=== PATIENT | male | born 1945 | race Caucasian/White ===

== ENCOUNTER 2016-09-23 10:05 | Observation (INO) | payer OTHER ==
[~2016-09-23] VITALS: Ht 177.8 cm; Wt 70.0 kg
[2016-09-23 10:08] VITALS: BP 190/104; PULSE 74; RESP 18; TEMP 98; O2SAT 98
[2016-09-23] MEDS ORDERED: TOPI200T7 PO (10:25)
[2016-09-23] MEDS ORDERED: FOLI1TAB4 PO (10:25)
[2016-09-23] MEDS ORDERED: MEGE1SUS10 PO (10:25)
[2016-09-23] MEDS ORDERED: GUAI600T11 PO (10:25)
[2016-09-23] MEDS ORDERED: OMEP20TA PO (10:25)
[2016-09-23] MEDS ORDERED: ATOR40TA16 PO (10:25)
[2016-09-23] MEDS ORDERED: BUDE1SUS2 (10:25)
[2016-09-23] MEDS ORDERED: SPIRCAP INH (10:25)
[2016-09-23] MEDS ORDERED: CETI10 PO (10:25)
[2016-09-23] MEDS ORDERED: VENL75TA PO (10:25)
[2016-09-23 10:26] VITALS: BP 178/97; PULSE 74; RESP 18; O2SAT 95; O2SAT 97
[2016-09-23] MEDS ORDERED: SODIUM CHLORIDE 0.9% FLUSH 5 ML FLUSH IVF PRN ×2 (10:30→12:45)
[2016-09-23] MEDS ORDERED: RESP: ALBUTEROL 2.5 MG/IPRATROPIUM 0.5 MG NEB (SCH) INH ONE (10:30)
[2016-09-23 10:35] LABS: AUTOMATED NEUTROPHIL # 5.5 TH/MM3 (1.8-7.7); BASOPHIL % 0.3 % (0.0-2.0); EOSINOPHIL # 0.1 TH/MM3 (0-0.4); EOSINOPHIL % 1.4 % (0.0-4.0); HEMATOCRIT 41.9 % (39.0-51.0); HEMO FLAGS DIFF FINAL; LYMPH % 23.1 % (9.0-44.0); LYMPHOCYTE # 1.9 TH/MM3 (1.0-4.8); MEAN CELL VOLUME 99.8 FL (80.0-100.0); MEAN CORPUSCULAR HEMOGLOBIN 33.4 PG (27.0-34.0); MEAN CORPUSCULAR HGB CONC 33.5 % (32.0-36.0); NEUT % 66.2 % (16.0-70.0); PLATELET COUNT 167 TH/MM3 (150-450); RED BLOOD COUNT 4.19 MIL/MM3 (4.50-5.90); RED CELL DISTRIBUTION WIDTH 13.5 % (11.6-17.2); WHITE BLOOD COUNT 8.3 TH/MM3 (4.0-11.0)
[2016-09-23 10:48] LABS: BICARBONATE 23.8 MEQ/L (21.0-32.0); MAGNESIUM 1.8 MG/DL (1.5-2.5); POTASSIUM 3.2 MEQ/L (3.5-5.1)
[2016-09-23 10:52] VITALS: O2SAT 97
--- NOTE | 2016-09-23 10:58 | PD ---
HPI Chief Complaint: Respiratory Symptoms Time Seen by Provider: 10:16 Travel History International Travel<30 days: No Contact w/Intl Traveler<30days: No Traveled to known affect area: No History of Present Illness HPI Patient is a 71-year-old male with history of COPD who presents the emergency department with complaint of shortness of breath. Patient states that for the last 5 days he has had dyspnea with exertion, feels as though he is unable to catch a deep breath. Initially denied any associated chest pain but on further questioning states that he has a slight ache in the substernal region with exertion. Patient is symptom-free at this time. He has not had any cough, cold , chest congestion, lower extremity edema. He denies any history of cardiac disease. He's had previous provocative testing but is been well over a decade. Patient was seen at the [facility] today, and they sent him here for further evaluation. [facility] Past Medical History Depression: Yes COPD: Yes Hypertension: Yes Tetanus Vaccination: > 5 Years Influenza Vaccination: Yes Past Surgical History Genitourinary Surgery: Yes (PROSTATE) Tonsillectomy: Yes Other Surgery: Yes (RT LOBECTOMY (LUNG CA)) Social History Alcohol Use: No Tobacco Use: No Substance Use: No Allergies-Medications (Allergen,Severity, Reaction): Coded Allergies: No Known Allergies (Unverified , 09/23/16) Reported Meds & Prescriptions Reported Meds & Active Scripts Active Reported Atorvastatin (Atorvastatin Calcium) 40 Mg Tab 40 Mg PO HS Cetirizine (Cetirizine HCl) 10 Mg Tab 10 Mg PO DAILY Budesonide (Budesonide (Nasal)) 32 Mcg/Act Aimee Spiriva Handihaler (Tiotropium Inh) 18 Mcg Cap 18 Mcg INH DAILY 1 capsule = 18 mcg Omeprazole 20 Mg Tab 20 Mg PO DAILY Megestrol ES Liq 625 Mg/5 Ml Susp 200 Mg PO DAILY Folate (Folic Acid) 1 Mg Tab 1 Mg PO DAILY Effexor (Venlafaxine HCl) 75 Mg Tab 75 Mg PO DAILY Topiramate 200 Mg Tab 200 Mg PO BID Mucus Relief ER (Guaifenesin) 600 Mg Tab 400 Mg PO BID PRN Review of Systems Except as stated in HPI: all other systems reviewed are Neg Physical Exam Narrative GENERAL: Well-appearing male in no acute distress SKIN: Warm and dry. HEAD: Normocephalic. EYES: No scleral icterus. No injection or drainage. ENT: Mucous membranes pink and moist. NECK: Supple CARDIOVASCULAR: Regular rate and rhythm. No murmur appreciated. RESPIRATORY: No accessory muscle use. Clear to auscultation. Breath sounds equal bilaterally. GASTROINTESTINAL: Abdomen soft, non-tender, nondistended. MUSCULOSKELETAL: No obvious deformities. No edema. NEUROLOGICAL: Awake and alert. Normal speech. PSYCHIATRIC: Appropriate mood and affect; insight and judgment normal. Data Data Last Documented VS Vital Signs Date Time Temp Pulse Resp B/P Pulse Ox O2 Delivery O2 Flow Rate FiO2 09/23/16 10:52 97 21 09/23/16 10:26 74 18 178/97 09/23/16 10:08 98.0 Orders Complete Blood Count With Diff (09/23/16 10:19) Basic Metabolic Panel (Bmp) (09/23/16 10:19) B-Type Natriuretic Peptide (09/23/16 10:19) Magnesium (Mg) (09/23/16 10:19) Troponin I (09/23/16 10:19) Iv Access Insert/Monitor (09/23/16 10:19) Electrocardiogram (09/23/16 10:19) Ecg Monitoring (09/23/16 10:19) Oximetry (09/23/16 10:19) Chest, Single Ap (09/23/16 10:19) Sodium Chloride 0.9% Flush (Ns Flush) (09/23/16 10:30) Albuterol-Ipratropium Neb (Duoneb Neb) (09/23/16 10:30) Ckmb (Isoenzyme) Profile (09/23/16 10:31) Prothrombin Time / Inr (Pt) (09/23/16 10:31) Act Partial Throm Time (Ptt) (09/23/16 10:31) Aspirin (Aspirin) (09/23/16 11:00) Admit Order (Ed Use Only) (09/23/16 11:18) Labs Laboratory Tests Test 09/23/16 10:20 White Blood Count 8.3 TH/MM3 Red Blood Count 4.19 MIL/MM3 Hemoglobin 14.0 GM/DL Hematocrit 41.9 % Mean Corpuscular Volume 99.8 FL Mean Corpuscular Hemoglobin 33.4 PG Mean Corpuscular Hemoglobin 33.5 % Concent Red Cell Distribution Width 13.5 % Platelet Count 167 TH/MM3 Mean Platelet Volume 8.7 FL Neutrophils (%) (Auto) 66.2 % Lymphocytes (%) (Auto) 23.1 % Monocytes (%) (Auto) 9.0 % Eosinophils (%) (Auto) 1.4 % Basophils (%) (Auto) 0.3 % Neutrophils # (Auto) 5.5 TH/MM3 Lymphocytes # (Auto) 1.9 TH/MM3 Monocytes # (Auto) 0.7 TH/MM3 Eosinophils # (Auto) 0.1 TH/MM3 Basophils # (Auto) 0.0 TH/MM3 CBC Comment DIFF FINAL Differential Comment Sodium Level 140 MEQ/L Potassium Level 3.2 MEQ/L Chloride Level 106 MEQ/L Carbon Dioxide Level 23.8 MEQ/L Anion Gap 10 MEQ/L Blood Urea Nitrogen 25 MG/DL Creatinine 1.03 MG/DL Estimat Glomerular Filtration 71 ML/MIN Rate Random Glucose 102 MG/DL Calcium Level 8.8 MG/DL Magnesium Level 1.8 MG/DL Troponin I 0.02 NG/ML B-Type Natriuretic Peptide 33 PG/ML MDM Medical Decision Making Medical Screen Exam Complete: Yes Emergency Medical Condition: Yes Medical Record Reviewed: Yes Differential Diagnosis 71-year-old male with history of COPD here with complaint of dyspnea and chest pain with exertion for the last 5 days, currently symptom-free. Differential includes COPD exacerbation, pneumonia, bronchitis, ACS, new onset heart failure , and less likely PE or dissection. Narrative Course Patient placed on monitor, IV established and blood obtained. A twelve-lead EKG shows sinus rhythm without notable ST abnormalities, normal intervals. Patient given aspirin, DuoNeb times. Portable chest x-ray was obtained that by my read shows no acute abnormalities. CBC, BMP, magnesium, CK-MB, troponin, coags, BNP obtained and unremarkable. Patient will be admitted to chest pain center for serial enzymes and EKG and provocative testing. Diagnosis Primary Impression: Exertional chest pain Additional Impression: Exertional dyspnea Admitting Information Admitting Physician Requests: Nasima Valdivia MD Sep 23, 2016 10:58
[2016-09-23] MEDS ORDERED: ASPIRIN 325 MG TAB PO ONE (11:00)
--- NOTE | 2016-09-23 11:24 | RADRPT ---
EXAM DATE/TIME: 09/23/2016 10:32 [facility] COMPARISON: No previous studies available for comparison. INDICATIONS : Short of breath. Chest pain. MEDICAL HISTORY : Carcinoma, prostatic. Carcinoma, lung. SURGICAL HISTORY : Lobectomy. Prostatectomy. ENCOUNTER: Initial ACUITY: 1 day PAIN SCORE: 4/10 LOCATION: Left middle chest FINDINGS: Portable AP view of the chest demonstrates a normal-sized cardiac silhouette with calcification of th e aorta. There is a calcified right paratracheal lymph node. Clips overlie the right hilar and suprah ilar region. No effusion, consolidation, or pneumothorax is visualized. There is slight blunting of t he right phrenic sulcus with linear opacity at the right base. There are right rib changes suggestive of prior thoracotomy. CONCLUSION: 1. Findings indicative of prior right thoracotomy. The blunting of the right costophrenic sulcus, the refore, most likely represents pleural scar. 2. Otherwise, no acute cardiopulmonary abnormality is identified. José Antonio Back MD on September 23, 2016 at 11:21 Board Certified Radiologist. This report was verified electronically.
[2016-09-23 11:59] LABS: APTT (PATIENT) 24.2 SEC (24.3-30.1)
[2016-09-23 12:41] LABS: CREATINE KINASE 53 U/L (39-308)
[2016-09-23] MEDS ORDERED: ACETAMINOPHEN 500 MG CPLT PO PRN (12:45)
[2016-09-23] MEDS ORDERED: cloNIDine HCL 0.1 MG TAB PO PRN (12:45)
[2016-09-23] MEDS ORDERED: ALPRAZolam 0.25 MG TAB PO PRN (12:45)
[2016-09-23] MEDS ORDERED: ONDANSETRON HCL 4 MG/2 ML VIAL IV PRN (12:45)
[2016-09-23] MEDS ORDERED: ACETAMINOPHEN/HYDROcodone 325 MG/7.5 MG TAB PO PRN (12:45)
[2016-09-23] MEDS ORDERED: RESP: ALBUTEROL 2.5 MG/IPRATROPIUM 0.5 MG NEB (PRN) INH (12:45)
[2016-09-23] MEDS ORDERED: IOHEXOL 350 MG/ML 10 ML VIAL (for RAD DIAG) IV ONE (13:27)
[2016-09-23] MEDS ORDERED: POTASSIUM CHLORIDE 20 MEQ CONTROLLED RELEASE TAB PO ONE (14:00)
--- NOTE | 2016-09-23 14:04 | HHI.HP ---
HPI Primary Care Physician Ra [facility] Chief Complaint Dyspnea on exertion History of Present Illness This is a 71-year-old male that presents to ED after being evaluated at the [place] [facility] today with a complaint of dyspnea on exertion. Patient states that he had been doing fine until week ago. He states that for the last week he gets extremely short of breath even with very minimal activity. He states he can only walk a few steps for gets extremely short of breath. He initially was not thinking of having discomfort in his chest but now recalls that he gets really short of breath he'll get a discomfort in the center of his chest but that resolves when the dyspnea resolves. However the discomfort is not always there when he has shortness of breath. Denies nausea or diaphoresis. He does have history of lung cancer and had a right upper lobe lobectomy 3 years ago. He follows oncologist and states that follow-up set been good. He also has history of COPD but states he generally does not use inhalers however he did try the inhalers a few times over last week without any improvement of his symptoms. He does believe that his symptoms improved after getting the breathing treatment in the ED. He states prior to that he was unable to get in a full breath. Denies history of CAD. He states that his last stress test was okay however was 20 years ago. Denies recent illness. Denies coughing. Denies fevers or chills. Review of Systems General: Patient denies fevers, chills recent, and recent travel HEENT: Patient denies headache, sore throat, difficulty swallowing. Cardiovascular: Has the chest discomfort as mentioned above. Denies sensation of heart beating rapidly or irregularly. Denies diaphoresis No syncope. Respiratory: Complains of shortness of breath with exertion which he describes as walking deceiving minimally. He states it's hard to take in a deep breath but this does not cause pain. Denies coughing wheezing or hemoptysis. GI: Patient denies nausea, vomiting, diarrhea, abdominal pain, bloody stools. Musculoskeletal: Patient denies joint pain or edema. Denies calf pain or edema. Neurovascular: Patient denies numbness, tingling, weakness in extremities. Denies headache. Endocrine: Denies polyuria and polydipsia. Hematologic: Denies easy bruising. Skin: Denies rash or itching. Past Family Social History Allergies: Coded Allergies: No Known Allergies (Unverified , 09/23/16) Past Medical History Lung cancer with right upper lobe lobectomy 3 years ago. COPD. Hypertension, hyperlipidemia. Prostate cancer with prostatectomy. Denies diabetes and known CAD. Past Surgical History Right upper lobe lobectomy secondary to lung cancer. Left tib-fib. Prostatectomy and tonsillectomy. Reported Medications Reported Meds & Active Scripts Active Reported Atorvastatin (Atorvastatin Calcium) 40 Mg Tab 40 Mg PO HS Cetirizine (Cetirizine HCl) 10 Mg Tab 10 Mg PO DAILY Budesonide (Budesonide (Nasal)) 32 Mcg/Act Aimee Spiriva Handihaler (Tiotropium Inh) 18 Mcg Cap 18 Mcg INH DAILY 1 capsule = 18 mcg Omeprazole 20 Mg Tab 20 Mg PO DAILY Megestrol ES Liq 625 Mg/5 Ml Susp 200 Mg PO DAILY Folate (Folic Acid) 1 Mg Tab 1 Mg PO DAILY Effexor (Venlafaxine HCl) 75 Mg Tab 75 Mg PO DAILY Topiramate 200 Mg Tab 200 Mg PO BID Mucus Relief ER (Guaifenesin) 600 Mg Tab 400 Mg PO BID PRN Active Ordered Medications Current Medications Medications (Trade) Dose Ordered Sig/Mo Route Start Time Stop Time Status Last Admin (NS Flush) 2 ml UNSCH PRN IVF 09/23/16 12:45 (NS Flush) 2 ml BID IVF 09/23/16 21:00 (Tylenol) 500 mg Q4H PRN PO 09/23/16 12:45 ([place] 7.5-325 Mg) 1 tab Q4H PRN PO 09/23/16 12:45 (Zofran Inj) 4 mg Q6H PRN IV 09/23/16 12:45 (Protonix) 40 mg DAILY PO 09/23/16 13:00 (Aspirin) 325 mg DAILY PO 09/24/16 09:00 (Xanax) 0.25 mg Q8H PRN PO 09/23/16 12:45 (Lipitor) 40 mg HS PO 09/23/16 21:00 (Folate) 1 mg DAILY PO 09/24/16 09:00 (Topamax) 200 mg BID PO 09/23/16 21:00 (Effexor Xr) 75 mg DAILY PO 09/24/16 09:00 (Catapres) 0.1 mg Q4H PRN PO 09/23/16 12:45 (KCl) 20 meq NOW ONCE PO 09/23/16 14:00 09/23/16 14:01 Family History Denies family history of CAD. Social History Patient quit smoking in 2003. Prior that he smoked 1-1/2 packs of cigarettes daily for 30 years. He has had no alcohol for 16 months. Denies illicit drugs. Patient is . Physical Exam Vital Signs Vital Signs Date Time Temp Pulse Resp B/P Pulse Ox O2 Delivery O2 Flow Rate FiO2 09/23/16 10:52 97 21 09/23/16 10:26 97 09/23/16 10:26 74 18 178/97 95 09/23/16 10:08 98.0 74 18 190/104 98 Physical Exam GENERAL: This is a well-nourished, well-developed patient, in no apparent distress. Patient speaks in clear complete sentences. Patient is pleasant. HEENT: Head is atraumatic and normocephalic. Neck is supple without lymphadenopathy and trachea is midline. No JVD or carotid bruits. CARDIOVASCULAR: Regular rate and rhythm without murmurs, gallops, or rubs. RESPIRATORY: Clear to auscultation. Breath sounds equal bilaterally. No wheezes , rales, or rhonchi. Chest wall is nontender. No use of accessory muscles. I had the patient walk while hooked up to pulse oximeter and his oxygen level on room air decreased to 79% after about 10 steps. His oxygen level was 94-95% on room air while lying in the stretcher. GASTROINTESTINAL: Abdomen is nontender, nondistended. Abdomen soft. No obvious pulsatile mass or bruit. No CVA tenderness. Strong femoral pulses bilaterally. Normal bowel sounds in all quadrants. MUSCULOSKELETAL: Patient is moving upper and lower extremities freely. No calf tenderness or edema, no Homans sign. Strong pulses in upper and lower extremities. NEUROLOGICAL: Patient is alert and oriented. Cranial nerves 2-12 are grossly intact. No focal deficits and speech is clear. SKIN: No rash and turgor is normal. Laboratory Laboratory Tests Test 09/23/16 09/23/16 10:20 11:15 White Blood Count 8.3 Red Blood Count 4.19 Hemoglobin 14.0 Hematocrit 41.9 Mean Corpuscular Volume 99.8 Mean Corpuscular Hemoglobin 33.4 Mean Corpuscular Hemoglobin 33.5 Concent Red Cell Distribution Width 13.5 Platelet Count 167 Mean Platelet Volume 8.7 Neutrophils (%) (Auto) 66.2 Lymphocytes (%) (Auto) 23.1 Monocytes (%) (Auto) 9.0 Eosinophils (%) (Auto) 1.4 Basophils (%) (Auto) 0.3 Neutrophils # (Auto) 5.5 Lymphocytes # (Auto) 1.9 Monocytes # (Auto) 0.7 Eosinophils # (Auto) 0.1 Basophils # (Auto) 0.0 CBC Comment DIFF FINAL Differential Comment Sodium Level 140 Potassium Level 3.2 Chloride Level 106 Carbon Dioxide Level 23.8 Anion Gap 10 Blood Urea Nitrogen 25 Creatinine 1.03 Estimat Glomerular Filtration 71 Rate Random Glucose 102 Calcium Level 8.8 Magnesium Level 1.8 Troponin I 0.02 B-Type Natriuretic Peptide 33 Prothrombin Time 11.0 Prothromb Time International 1.0 Ratio Activated Partial 24.2 Thromboplast Time Total Creatine Kinase 53 Result Diagram: 09/23/16 1020 09/23/16 1020 Imaging Last 48 hours Impressions Chest X-Ray 09/23/16 1019 Signed Impressions: Service Date/Time: Friday, September 23, 2016 10:32 - CONCLUSION: 1. Findings indicative of prior right thoracotomy. The blunting of the right costophrenic sulcus, therefore, most likely represents pleural scar. 2. Otherwise, no acute cardiopulmonary abnormality is identified. José Antonio Back MD Course Initial EKG is sinus rhythm without significant ST segment depressions or elevations. Assessment and Plan Assessment and Plan * COPD: Patient has had COPD. He was admitted to the chest pain center to evaluate possible cardiac causes of his dyspnea on exertion. The patient desaturated on room air while walking in the [place] after about 10 steps. He was placed on oxygen. She will be evaluated by Dr. Miguel Nascimento of cardiology and the chest pain center. We will get a CTA of the chest. This is pending. Further recommendations pending the evaluation from Dr. Miguel Nascimento as well as the results of the CTA. * Chest pain: Patient will be evaluated by Dr. Miguel Nascimento and further recommendations will follow. Patient will continue to have serial cardiac enzymes and EKGs for ruling out purposes. * Hypertension: Patient states [facility] over 6 months ago after being hypotensive. Patient is stable at this time. He is agreeable to this plan. Azzarello,Rodger A. PA Sep 23, 2016 14:04
[2016-09-23] MEDS: PANTOPRAZOLE SOD 40 MG DELAYED RELEASE TAB PO SCH (14:29)
--- NOTE | 2016-09-23 14:34 | RADRPT ---
EXAM DATE/TIME: 09/23/2016 13:25 [facility] COMPARISON: CHEST SINGLE AP, September 23, 2016, 10:32. INDICATIONS : Shortness of breath; chest pain. IV CONTRAST: 50 cc Omnipaque 350 (iohexol) IV RADIATION DOSE: 20.68 CTDIvol (mGy) MEDICAL HISTORY : Hypertension. Carcinoma, lung. SURGICAL HISTORY : Lobectomy. Prostate. ENCOUNTER: Initial ACUITY: 4 - 6 days PAIN SCALE: 4/10 LOCATION: Bilateral chest TECHNIQUE: Volumetric scanning of the chest was performed using a pulmonary embolism protocol MIP images were re constructed. Using automated exposure control and adjustment of the mA and/or kV according to patien t size, radiation dose was kept as low as reasonably achievable to obtain optimal diagnostic quality images. FINDINGS: PULMONARY ARTERIES: No filling defects are seen in the pulmonary arteries through the subsegmental level. LUNGS: There is mild centrilobular emphysema. Clips are present adjacent to the right upper lobe bronchus an d there has been prior right upper lobectomy. [place] are present along the medial aspect of the righ t middle lobe. Scar is present at the right lung base. No consolidation or pneumothorax is present. PLEURAE: There is right pleural thickening. No significant pleural fluid is present. MEDIASTINUM: There is good visualization of the great vessels of the middle mediastinum. Coronary artery calcifica tion is present. No evidence of mediastinal or hilar adenopathy/mass. MUSCULOSKELETAL: There are degenerative changes of the thoracic spine and the right posterior sixth rib has been resec dhruv. MISCELLANEOUS: The visualized upper abdominal organs demonstrate no acute abnormality. There are innumerable punctat e scattered calcifications throughout the liver and spleen indicative of prior glomus infection. Ther e is a diverticulum arising from the posterior aspect of the proximal stomach measuring 5.8 cm on thi s exam. CONCLUSION: 1. No PE is identified. 2. Patient is post right thoracotomy and right upper lobectomy. There is mild centrilobular emphysema . 3. Nonacute findings include coronary artery calcification and gastric diverticulum. José Antonio Back MD on September 23, 2016 at 14:25 Board Certified Radiologist. This report was verified electronically.
--- NOTE | 2016-09-23 15:08 | EKG ---
Date Performed: 09/23/2016 Time Performed: 10:14:29 PTAGE: 71 years EKG: Sinus rhythm NORMAL ECG NO PREVIOUS TRACING DOCTOR: Miguel Nascimento Interpretating Date/Time 09/23/2016 15:06:55
[2016-09-23] MEDS ORDERED: REGADENOSON INJ 0.4 MG/5 ML SYR ONE (15:32)
[2016-09-23 17:10] VITALS: BP 156/82; PULSE 77; RESP 19; TEMP 97.8; O2SAT 95
--- NOTE | 2016-09-23 17:23 | RADRPT ---
EXAM DATE/TIME: 09/23/2016 15:29 [facility] COMPARISON: No previous studies available for comparison. INDICATIONS : Dyspnea upon exertion for 5 days with slight substernal ache in chest. Angina. DOSE: 26.1 mCi Tc99m Myoview at stress. 8.8 mCi Tc99m Myoview at rest. 0.4 mg Lexiscan STRESS SYMPTOMS: Dyspnea. EJECTION FRACTION: 62% MEDICAL HISTORY : Chronic obstructive pulmonary disease. Hypertension. SURGICAL HISTORY : Tonsillectomy. Prostatectomy. Lobectomy. ENCOUNTER: Initial ACUITY: 4 - 6 days PAIN SCALE: 2/10 LOCATION: Substernal chest TECHNIQUE: The patient underwent pharmacologic stress with infusion of prescribed dose. Continuous ECG tracing was monitored during stress. Gated SPECT imaging was performed after stress and conventional SPECT i maging was performed at rest. The examination was performed on a SPECT/CT scanner, both attenuation and non-corrected datasets were reviewed. FINDINGS: DISTRIBUTION: The maximum perfused segment at stress is in the inferior wall. PERFUSION STUDY: There is extensive activity involving the bowel which limits evaluation of the inferior wall. The rem ainder of the myocardium demonstrates no abnormality. GATED STUDY: There is intact wall motion and thickening without hypokinetic or dyskinetic segments. CONCLUSION: 1. Limited but negative evaluation of the heart. Please see above. RISK CATEGORY: Low (<1% Annual Mortality Rate) Miguel Adam MD on September 23, 2016 at 17:18 Board Certified Radiologist. This report was verified electronically.
[2016-09-23 19:57] VITALS: BP 116/72; PULSE 80; RESP 18; TEMP 98.8; O2SAT 98
[2016-09-23] MEDS ORDERED: ATORVASTATIN 40 MG TAB PO SCH (21:00)
[2016-09-23] MEDS: SODIUM CHLORIDE 0.9% FLUSH 5 ML FLUSH IVF SCH (22:35)
[2016-09-23] MEDS: TOPIRAMATE 200 MG TAB PO SCH (22:35)
[2016-09-23] MEDS: BUDESONIDE-FORMOTEROL 160/4.5 MCG INHALER INH SCH (22:39)
[2016-09-23 23:19] LABS: CREATINE KINASE 59 U/L (39-308)
[2016-09-23 23:44] VITALS: O2SAT 97
[2016-09-24 00:17] VITALS: BP 122/70; PULSE 73; RESP 18; TEMP 98.6; O2SAT 97
[2016-09-24 04:22] VITALS: BP 123/77; PULSE 76; RESP 18; TEMP 98.1; O2SAT 97
[2016-09-24 06:34] LABS: BLOOD GAS BASE EXCESS -6.4 mmol/L (-2-2); BLOOD GAS CARBOXYHEMOGLOBIN 1.7 % (0-4); BLOOD GAS HCO3 17 mmol/L (22-26); BLOOD GAS METHEMOGLOBIN 1.9 % (0-2); BLOOD GAS O2 HGB SATURATION 94 % (90-100); BLOOD GAS OXYGEN CONTENT 18.9 Vol % (12.0-20.0); BLOOD GAS PCO2 25 mmHg (38-42); BLOOD GAS PO2 92 mmHg (61-120); BLOOD GAS TOTAL HGB 14.2 G/DL (12.0-16.0); CRITICAL VALUE NO; FIO2 21 %; TEMP CORR TO 98.6
[2016-09-24 06:35] LABS: STAT YES
--- NOTE | 2016-09-24 06:45 | MB ---
cc: ADDY PARRISH MD DATE OF CONSULTATION REQUESTING PHYSICIAN Dr. Rodger Austin REASON FOR CONSULTATION COPD HISTORY OF PRESENT ILLNESS Mr. Dexter is a 71-year-old white male with history of CA of the lung status post right upper lobe resection followed by chemotherapy. He also has a history of CA of the prostate status post surgery. The patient has a history of COPD until two weeks ago was able to walk a half a mile or so but recently suddenly started getting worse to the extent that he can barely walk in the room and gets short of breath. He went to see his primary physician at the [facility], Dr. Marizol Lou. Because of his worsening of shortness of breath, the patient was sent to the hospital. He had a workup done. He had a CT of the chest done that does not show any pulmonary embolism and shows right thoracotomy and right upper lobectomy, mild central lobular emphysema. His myocardial perfusion scan is negative. CBC showed WBC count 8.3, hemoglobin 14.0, hematocrit 41.9, MCA 99, platelet count 167. Sodium 140, potassium 3.2, chloride 106, CO2 24, BUN 25, creatinine 1.03. BNP 33, troponin less than 0.03. PAST MEDICAL HISTORY Significant for a history of: 1. CA of the lung status post right upper lobectomy followed by Chemotherapy. 2. CA of the prostate status post surgery. 3. COPD 4. Hypertension MEDICATIONS He is currently takin. Aspirin 325 mg 2. Folic acid 1 mg a day 3. Effexor 75 mg a day 4. Lipitor 40 mg a day 5. Topamax 200 mg twice a day 6. Protonix 40 mg a day 7. Hollister for pain 8. Xanax 0.25 mg p.r.n. 9. Albuterol and Atrovent nebulizer treatment ALLERGIES NO KNOWN DRUG ALLERGIES. SOCIAL HISTORY He is used to work as an automotive light mechanic. He has had exposure to asbestos. He has a history of smoking which he quit one and half packs a day for 30 years which he quit in 2003. He used to drink which he quit 1-1/2 years ago. He used marijuana in the past. FAMILY HISTORY He is and lives alone. He has no children. REVIEW OF SYSTEMS Denies any weight loss. No headache or dizziness. Until two weeks ago, he was pretty much active. No coronary disease. No seizure, stroke or epilepsy. PHYSICAL EXAM This is a pleasant elderly male not in any acute distress. VITAL SIGNS: Blood pressure 156/82, heart rate 70, respiration 90. 97.8. HEENT: Pupils are equal and reactive to light. He has bilateral cataract surgery done. Oral mucosa, nasal mucosa normal. NECK: Supple. JVP not raised. CHEST: Equal air entry bilaterally. No rhonchi. He has hyperresonant chest. CARDIOVASCULAR: S1 and S2 is normal. ABDOMEN: Benign. EXTREMITIES: No edema. IMPRESSION 1. COPD 2. Hypoxia, no evidence of pulmonary embolism. 3. Negative for myocardial perfusion scan. 4. History of CA of the lung status post right upper lobectomy. 5. History of CA of the prostate. PLAN I will check his blood gas. I will also check his pulmonary function study. Continue aerosol treatment. Also start him on Symbicort twice a day. We will optimize his pulmonary condition and evaluate him for the need for possible home oxygen therapy. Further treatment will depend on the course in the hospital. Thank you Dr. Austin for this consult. MD AUSTIN Ashford/HARI /6:31 PM /6:31 AM
[2016-09-24 07:38] VITALS: BP 120/81; PULSE 83; RESP 18; TEMP 98.1; O2SAT 97
--- NOTE | 2016-09-24 08:14 | PD.CARD.PN ---
Subjective Subjective Remarks Patient still complains of dyspnea with a little bit of walking. Patient was seen by Dr. Christensen and has requested PFTs and. ABGs. Stress test was nonischemic. We will await follow-up with pulmonology to determine further plan and to arrange for disposition. Objective Vital Signs / I&O Vital Signs Date Time Temp Pulse Resp B/P Pulse Ox O2 Delivery O2 Flow Rate FiO2 09/24/16 07:38 98.1 83 18 120/81 97 09/24/16 04:22 98.1 76 18 123/77 97 09/24/16 00:17 98.6 73 18 122/70 97 09/23/16 23:44 97 09/23/16 19:57 98.8 80 18 116/72 98 09/23/16 17:10 97.8 77 19 156/82 95 09/23/16 10:52 97 21 09/23/16 10:26 97 09/23/16 10:26 74 18 178/97 95 09/23/16 10:08 98.0 74 18 190/104 98 Physical Exam Gen.: No apparent distress. Speaking in clear complete sentences. Cardiac: Regular rate and rhythm without murmur gallop or rub. Lungs: Clear to auscultate bilaterally. GI: Nontender and bowel sounds normal. Laboratory Laboratory Tests Test 09/23/16 09/23/16 09/23/16 09/23/16 10:20 11:15 14:25 19:29 White Blood Count 8.3 TH/MM3 Red Blood Count 4.19 MIL/MM3 Hemoglobin 14.0 GM/DL Hematocrit 41.9 % Mean Corpuscular Volume 99.8 FL Mean Corpuscular Hemoglobin 33.4 PG Mean Corpuscular Hemoglobin 33.5 % Concent Red Cell Distribution Width 13.5 % Platelet Count 167 TH/MM3 Mean Platelet Volume 8.7 FL Neutrophils (%) (Auto) 66.2 % Lymphocytes (%) (Auto) 23.1 % Monocytes (%) (Auto) 9.0 % Eosinophils (%) (Auto) 1.4 % Basophils (%) (Auto) 0.3 % Neutrophils # (Auto) 5.5 TH/MM3 Lymphocytes # (Auto) 1.9 TH/MM3 Monocytes # (Auto) 0.7 TH/MM3 Eosinophils # (Auto) 0.1 TH/MM3 Basophils # (Auto) 0.0 TH/MM3 CBC Comment DIFF FINAL Differential Comment Sodium Level 140 MEQ/L Potassium Level 3.2 MEQ/L Chloride Level 106 MEQ/L Carbon Dioxide Level 23.8 MEQ/L Anion Gap 10 MEQ/L Blood Urea Nitrogen 25 MG/DL Creatinine 1.03 MG/DL Estimat Glomerular Filtration 71 ML/MIN Rate Random Glucose 102 MG/DL Calcium Level 8.8 MG/DL Magnesium Level 1.8 MG/DL Total Creatine Kinase 59 U/L 53 U/L 57 U/L Troponin I 0.02 NG/ML 0.03 NG/ML B-Type Natriuretic Peptide 33 PG/ML Prothrombin Time 11.0 SEC Prothromb Time International 1.0 RATIO Ratio Activated Partial 24.2 SEC Thromboplast Time Blood Gas Puncture Site Blood Gas Patient Temperature 98.6 Blood Gas HCO3 17 mmol/L Blood Gas Base Excess -6.4 mmol/L Blood Gas Oxygen Saturation 94 % Arterial Blood pH 7.44 Arterial Blood Partial 25 mmHg Pressure CO2 Arterial Blood Partial 92 mmHg Pressure O2 Arterial Blood Oxygen Content 18.9 Vol % Arterial Blood 1.7 % Carboxyhemoglobin Arterial Blood Methemoglobin 1.9 % Blood Gas Hemoglobin 14.2 G/DL Blood Gas Inspired Oxygen 21 % Imaging Last 48 hours Impressions Chest X-Ray 09/23/16 1019 Signed Impressions: Service Date/Time: Friday, September 23, 2016 10:32 - CONCLUSION: 1. Findings indicative of prior right thoracotomy. The blunting of the right costophrenic sulcus, therefore, most likely represents pleural scar. 2. Otherwise, no acute cardiopulmonary abnormality is identified. José Antonio Back MD Myocardial Perfusion Scan Nuc Med 09/23/16 0000 Signed Impressions: Service Date/Time: Friday, September 23, 2016 15:29 - CONCLUSION: 1. Limited but negative evaluation of the heart. Please see above. RISK CATEGORY: Low (<1% % Annual Mortality Rate) Miguel Adam MD CT Angiography 09/23/16 0000 Signed Impressions: Service Date/Time: Friday, September 23, 2016 13:25 - CONCLUSION: 1. No PE is identified. 2. Patient is post right thoracotomy and right upper lobectomy. There is mild centrilobular emphysema. 3. Nonacute findings include coronary artery calcification and gastric diverticulum. José Antonio Back MD Assessment and Plan Assessment and Plan * COPD: Patient has had COPD. He was admitted to the chest pain center to evaluate possible cardiac causes of his dyspnea on exertion. The patient desaturated on room air while walking in the [place] after about 10 steps. He was placed on oxygen. She will be evaluated by Dr. Miguel Nascimento of cardiology and the chest pain center. CT of the chest does not reveal PE. Patient evaluated by pulmonology and test are pending. Further plan and disposition is pending recommendations from pulmonology. Patient likely will be discharged on home oxygen and likely will be adding Symbicort his medication. * Chest pain: Patient will be evaluated by Dr. Miguel Nascimento and further recommendations will follow. Patient will continue to have serial cardiac enzymes and EKGs for ruling out purposes. Lexiscan was nonischemic. No further cardiac workup at this time. * Hypertension: Patient states [facility] took multiple medicines over 6 months ago after being hypotensive. Patient is stable at this time. He is agreeable to this plan. I spoke with Dr. Christensen patient may be discharged from pulmonology standpoint once home oxygen has been arranged with also prescription for Symbicort. Rodger Austin Sep 24, 2016 08:14
[2016-09-24] MEDS: TOPIRAMATE 200 MG TAB PO SCH (08:43)
[2016-09-24] MEDS: BUDESONIDE-FORMOTEROL 160/4.5 MCG INHALER INH SCH (08:43)
[2016-09-24] MEDS: PANTOPRAZOLE SOD 40 MG DELAYED RELEASE TAB PO SCH (08:44)
[2016-09-24] MEDS: SODIUM CHLORIDE 0.9% FLUSH 5 ML FLUSH IVF SCH (08:44)
[2016-09-24 08:57] VITALS: O2SAT 98
[2016-09-24] MEDS ORDERED: ASPIRIN 325 MG TAB PO SCH (09:00)
[2016-09-24] MEDS ORDERED: VENLAFAXINE HCL XR 75 MG CAP PO SCH (09:00)
[2016-09-24] MEDS ORDERED: FOLIC ACID 1 MG TAB PO SCH (09:00)
[2016-09-24] MEDS ORDERED: OXYGENTANK NAS.CANULA (11:34)
[2016-09-24 11:35] VITALS: BP 105/71; PULSE 86; RESP 17; TEMP 97.6; O2SAT 98
[2016-09-24] MEDS ORDERED: SYMB160A INH (12:23)
--- NOTE | 2016-09-24 12:29 | HHI.DCPOC ---
Discharge Care Plan Diagnosis: (1) COPD (chronic obstructive pulmonary disease) (2) Chest pain Goals to Promote Your Health * To prevent worsening of your condition and complications * To maintain your health at the optimal level Directions to Meet Your Goals Take your medications as prescribed Follow your dietary instruction Follow activity as directed Keep your appointments as scheduled Take your immunizations and boosters as scheduled If your symptoms worsen call your PCP, if no PCP go to Urgent Care Center or Emergency Room Smoking is Dangerous to Your Health. Avoid second hand smoke Call the 24-hour hour crisis hotline for domestic abuse at Rodger Austin Sep 24, 2016 12:29
--- NOTE | 2016-09-24 16:43 | EKG ---
Date Performed: 09/23/2016 Time Performed: 15:12:27 PTAGE: 71 years EKG: Sinus rhythm WITH OCCASIONAL VENTRICULAR PREMATURE COMPLEXES BORDERLINE ECG PREVIOUS TRACING : 09/23/2016 10.14 Since previous tracing, no significant change noted DOCTOR: Renetta Moore Interpretating Date/Time 09/24/2016 16:42:31
--- NOTE | 2016-09-24 16:43 | TR ---
Date Performed: 09/23/2016 Time Performed: 16:08:05 DOCTOR: Renetta Moore DRUG LIST: CLINICAL HISTORY: REASON FOR TEST: Angina REASON FOR ENDING: OBSERVATION: CONCLUSION: Lexiscan stress test was performed under standard four minute protocol. Radionuclid e was injected one minute prior to ending the test. No electrocardiographic abormalities were present to suggest ischemia. Nuclear imaging and interpretation are pending. COMMENTS:
--- NOTE | 2016-09-24 16:44 | EKG ---
Date Performed: 09/23/2016 Time Performed: 17:24:57 PTAGE: 71 years EKG: Sinus rhythm NORMAL ECG PREVIOUS TRACING : 09/23/2016 15.12 Since previous tracing, no significant change noted DOCTOR: Renetta Moore Interpretating Date/Time 09/24/2016 16:43:13
--- NOTE | 2016-09-24 18:16 | HHI.PR ---
Subjective Remarks 71 YOWM with COPD,ca lung and Prostate Breathing better Occ cough no CP Anxious to go home Objective Vital Signs Vital Signs Date Time Temp Pulse Resp B/P Pulse Ox O2 Delivery O2 Flow Rate FiO2 09/24/16 11:35 97.6 86 17 105/71 98 09/24/16 08:57 2.00 09/24/16 08:57 98 Nasal Cannula 2.00 09/24/16 07:38 98.1 83 18 120/81 97 09/24/16 04:22 98.1 76 18 123/77 97 09/24/16 00:17 98.6 73 18 122/70 97 09/23/16 23:44 97 09/23/16 19:57 98.8 80 18 116/72 98 Result Diagram: 09/23/16 1020 09/23/16 1020 Objective Remarks GENERAL: MBMN WM NAD SKIN: Warm and dry. HEAD: Normocephalic. EYES: No scleral icterus. No injection or drainage. NECK: Supple, trachea midline. No JVD or lymphadenopathy. CARDIOVASCULAR: Regular rate and rhythm without murmurs, gallops, or rubs. RESPIRATORY: Breath sounds equal bilaterally. No accessory muscle use. GASTROINTESTINAL: Abdomen soft, non-tender, nondistended. MUSCULOSKELETAL: No cyanosis, or edema. BACK: Nontender without obvious deformity. No CVA tenderness. A/P Assessment and Plan COPD Hypoxia, No PE, Improved Anxiety H/O ca Lung H/O Ca prostate PLAN: Aerosol nebs Symbicort 2 puffs bid 02 walk test DC plans underway Daniel Christensen MD Sep 24, 2016 18:16
[2016-09-25 07:29] LABS: DRAW SITE RT RADIAL; NUMBER OF ARTERIAL PUNCTURES 1; ULNAR PULSE PRESENT
--- NOTE | 2016-09-25 08:09 | RSPPFT ---
DATE OF PROCEDURE: 09/24/16 COMMENTS: Spirometry shows FVC of 3.1 at 61% of predicted, FEV1 of 1.5 at 36%, FEV1/FVC ratio is decreased. Flow is decreased at FEF 25-75. There is no response after bronchodilator treatment. Flow volume loop indicates an obstructive pattern. IMPRESSION: 1. Severe obstructive lung disease. 2. No response after bronchodilator treatment.
== END 2016-09-24 17:24 | disposition home or self-care (01) ==
LOC: NEPA 10:05 → NEDA 11:20 → NEPGCP 17:09
PROVIDERS: ADMIT Internal Medicine Cardiovascular Disease; ATTEND Internal Medicine Cardiovascular Disease
DX: R09.02 Hypoxemia (principal); R06.09 Other forms of dyspnea; J44.9 Chronic obstructive pulmonary disease, unspecified; I10 Essential (primary) hypertension; Z85.118 Personal history of other malignant neoplasm of bronchus and lung; Z85.46 Personal history of malignant neoplasm of prostate; Z92.21 Personal history of antineoplastic chemotherapy; Z90.2 Acquired absence of lung [part of]; Z77.090 Contact with and (suspected) exposure to asbestos
CPT/HCPCS: 36600; 71010; 71275; 78452; 80048; 82550; 82805; 83735; 83880; 84484; 85025; 85610; 85730; 93005; 93017; 94060; 94620; 94664; 99285; A9502; G0378; J2785; Q9967